=== PATIENT | female | born 1990 | race Caucasian/White ===

== ENCOUNTER → 2024-10-01 | Outpatient (CLI) | payer BC, OTHER, SELFPAY ==
[2024-10-04 16:08] LABS: HPV APTIMA, High Risk Negative (Negative)
== END | disposition home or self-care (01) ==
PROVIDERS: Referring Provider Nurse Practitioner Family; Visit Provider Nurse Practitioner Family
DX: Z12.4 Encounter for screening for malignant neoplasm of cervix (principal)
CPT/HCPCS: 87624; 88175; G0145

== ENCOUNTER 2025-06-09 11:14 | Emergency (ER) | payer BC, OTHER, SELFPAY ==
--- OUTSIDE RECORDS SUMMARY | 2025-02-08 15:44 | XMS RPT_ITS ---
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) [facility] 02/08/2025 Active 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.9(ICD-10) [facility] 02/07/2025 Active Obesity, unspeci fied class, unspecified obesity type, unspecified whether serious comorbidity present / E66.9(ICD-10) [facility] 10/08/2024 Active Nausea vomiting and diarrhea / R11.2(ICD-10) [facility] 10/08/2024 Active Nausea vomiting and diarrhea / R19.7(ICD-10) [facility] 06/18/2020 Active Crohn's disease of small and large intestines with complication (HCC) / K50.819(ICD-10) [facility] 07/13/2024 Active Immunosuppressed status (HCC) / D84.9(ICD-10) [facility] PROCEDURES No Procedure Records Found RESULTS CALPROTECTIN STL-MCNT Collected: 02/08/2025 2:40 PM Status: F Source: [facility] Order Comment: Specimen Type : STOOL SPECIMEN Ordering Facility: [facility] Address: [address] [place] [address] TYPE CODE TESTS RESULT OUT OF RANGE REFERENCE UNITS LAB [id number] CALPROTECTIN, FECAL QUANTITATIVE 17.7 <50 ug/g LAB [id number] CALPROTECTIN, FECAL INTERP Normal Normal Result Comment: Interpretati on: <50.0 ug/g: Normal 50.0 ug/g - 120.0 ug/g: Borderline elevated. Re-evaluation in 4-6 weeks is recommended if clinically indicated. >120.0 ug/g: Elevated Performed By: #### 80052-2 # ### [facility] CLIA [id number] [address] [place] CBC PNL BLD AUTO Collected: 5 4:06 PM Status: F Source: [facility] Order Comment: Specimen Type : BLOOD SPECIMEN Ordering Facility: [facility] Address: [address] [place] [address] TYPE CODE TESTS RESULT OUT OF RANGE REFERENCE UNITS LAB 6690-2(LOINC) WBC # Bld Auto 11.11 High 3.70-11.00 k/uL LAB 789-8(LOINC) RBC # Bld Auto 4.64 3.90-5.20 m/uL LAB 718-7(LOINC) Hgb Bld-mCnc 13.1 11.5-15.5 g/dL LAB 4544-3(LOINC) Hct VFr Bld Auto 40.4 36.0-46.0 % LAB 787-2(LOINC) MCV RBC Auto 87.1 80.0-100.0 fL LAB 785-6(LOINC) MCH RBC Qn Auto 28.2 26.0-34.0 pg LAB 786-4(LOINC) MCHC RBC Auto-mCnc 32.4 30.5-36.0 g/dL LAB 68425-3(LOINC) RDW RBC-Rto 13.0 11.5-15.0 % LAB 777-3(LOINC) Platelet # Bld Auto 290 150-400 k/uL LAB 83241-9(LOINC) PMV Bld Auto 11.4 9.0-12.7 fL Performed By: #### 79131-6 # ### [facility] CLIA [id number] [address] [facility] [address] [place] [address] [place] COMP METAB 2000 PNL SERPL Collected: 4:06 PM Status: F Source: [facility] Order Comment: Specimen Type : BLOOD SPECIMEN Ordering Facility: [facility] Address: [address] [place] [address] TYPE CODE TESTS RESULT OUT OF RANGE REFERENCE UNITS LAB 2885-2(LOINC) Prot SerPl-mCnc 7.2 6.0-8.5 g/dL LAB 1751-7(LOINC) Albumin SerPl-mCnc 3.9 3.2-5.0 g/dL LAB 72635-2(LOINC) Calcium SerPl-mCnc 9.1 8.5-10.5 mg/dL LAB 1975-2(LOINC) Bilirub SerPl-mCnc 0.4 0.2-1.0 mg/dL LAB 6768-6(LOINC) ALP SerPl-cCnc 112 45-117 U/L LAB 1920-8(LOINC) AST SerPl-cCnc Result Comment: Unable to as say due to interference from hemolysis. Suggest reorder as clinically indicated. Results may be falsely depressed after the administration of Sulfasalazine and/or Sulfapyridine. LAB 1742-6(LOINC) ALT SerPl-cCnc 35 13-61 U/L Result Comment: Results may be falsely depressed after the administration of Sulfasalazine and/or Sulfapyridine. LAB 2345-7(LOINC) Glucose SerPl-mCnc 74 70-100 mg/dL Result Comment: The [place] [employer] (ADA) provides guidance for cutoff values for fasting glucose and random glucose. The ADA defines fasting as no caloric intake for at least 8 hours. Fasting plasma glucose results between 100 to 125 mg/dL indicate increased risk for diabetes (prediabetes). Fasting plasma glucose results greater than or equal to 126 mg/dL meet the criteria for diagnosis of diabetes. In the absence of unequivocal hyperglycemia, results should be confirmed by repeat testing. In a patient with classic symptoms of hyperglycemia or hyperglycemic crisis, random plasma glucose results greater than or equal to 200 mg/dL meet the criteria for diagnosis of diabetes. Reference: Standards of Medical Care in Diabetes 2016, [place] [employer]. Diabetes Care. 2016.39(Suppl 1). Results may be falsely elevated after the administration of Sulfapyridine. Results may be falsely depressed after the administration of Sulfasalazine. LAB 3094-0(LOINC) BUN SerPl-mCnc 8 7-26 mg/ dL LAB 2160-0(LOINC) Creat SerPl-mCnc 0.48 Low 0.51-0.95 mg/dL Result Comment: Patients rec eiving either N-Acetylcysteine (NAC) or Metamizole prior to venipuncture, may have falsely depressed results. LAB 2951-2(LOINC) Sodium SerPl-sCnc 140 136-145 mmol/L LAB 2823-3(LOINC) Potassium SerPl-sCnc Result Comment: Unable to as say due to interference from hemolysis. Suggest reorder as clinically indicated. LAB 2075-0(LOINC) Chloride SerPl-sCnc 102 98-107 mmol/L LAB 2027-9(LOINC) CO2 SerPl-sCnc 25 21-32 mmo l/L LAB 46305-0(LOINC) Anion Gap SerPl-sCnc 13 5-16 mmol/L LAB 76807-3(LOINC) Creatinine + eGFR Pnl SerPlBld 129 >=60 mL/min/1 .73m??? Result Comment: Estimated Gl omerular Filtration Rate (eGFR) is calculated using the 2020 CKD-EPI creatinine equation. This equation utilizes serum creatinine, sex, and age as parameters. The creatinine assay has traceable calibration to isotope dilution-mass spectrometry. Refer to KDIGO guidelines for clinical interpretation. In patients with unstable renal function, e.g. those with acute kidney injury, the eGFR may not accurately reflect actual GFR. Performed By: #### 28319-8, 1988-01 #### [facility] CLIA [id number] [address] [place] [address] [place] CRP SERPL-MCNC Collected: 5 4:06 PM Status: F Source: [facility] Order Comment: Specimen Type : BLOOD SPECIMEN Ordering Facility: [facility] Address: [address] [place] [address] TYPE CODE TESTS RESULT OUT OF RANGE REFERENCE UNITS LAB 1988-01(LOINC) CRP SerPl-mCnc <0.5 <1.0 mg/dL Performed By: #### 54637-2, 1988-01 #### [facility] CLIA [id number] [address] [place] [id number] [facility] ESR BLD QN WESTRGRN Collected: 02/08/20 4:06 PM Status: F Source: [facility] Order Comment: Specimen Type : BLOOD SPECIMEN Ordering Facility: [facility] Address: [address] [place] [address] TYPE CODE TESTS RESULT OUT OF RANGE REFERENCE UNITS LAB 4537-7(LOINC) ESR Bld Qn Westrgrn 6 0-20 mm/hr Performed By: #### 4537-7 ## ## [facility] CLIA [id number] [address] ED NOTE Observed: 10/08/2024 9:42 AM Status: COMPLETED Source: [facility] HNO ID: [id number] Author: MORGAN GRANT RN Service: Emergency Medicine Author Type: Registered Nurse Type: ED Notes Filed: 10/08/2024 09:42 Note Text: PO trial successful ED NOTE Observed: 10/08/2024 9:07 AM Status: COMPLETED Source: [facility] HNO ID: [id number] Author: MORGAN GRANT RN Service: Emergency Medicine Author Type: Registered Nurse Type: ED Notes Filed: 10/08/2024 09:07 Note Text: PO challenge started. Check back in [address] ABD/PEL W IVCON Observed: 10/08/2024 8:06 AM Status: F Source: [facility] * * *Final Report* * * DATE OF EXAM: Oct 08 2024 8:06AM [facility] 0530 - CT ABD/PEL W IVCON / PROCEDURE REASON: Nausea/vomiting * * * * Physician Interpretation * * * * EXAMINATION: CT ABDOMEN AND PELVIS WITH IV CONTRAST CLINICAL HISTORY: Nausea, vomiting, history of Crohn's, previous bowel resections. TECHNIQUE: CT of the abdomen and pelvis was performed using standard technique, scanning from just above the dome of the diaphragm to the symphysis pubis. MQ: CTAP_3 Contrast: IV: 100 ml of Omnipaque 350 CT Radiation dose: Integrated Dose-length product (DLP) for this visit = 635.36 mGy*cm. CT Dose Reduction Employed: Automated exposure control(AEC) and iterative recon COMPARISON: CT abdomen/pelvis 12/18/2019, MRI enterography 03/29/2020 RESULT: Liver: Hepatic steatosis. No mass. Biliary: No bile duct dilation. Gallbladder is unremarkable. Spleen: No mass. No splenomegaly. Pancreas: No mass or duct dilation. Adrenals: No mass. Kidneys: Punctate 2 mm nonobstructing right renal calculus. No hydronephrosis or mass. GI tract: Postoperative findings of ileocolic resection. No dilation or wall thickening. The appendix is not identified. Lymph nodes: Few mildly prominent mesenteric lymph nodes midabdomen, decreased in size compared to 12/18/2019. No abdominal or pelvic lymphadenopathy by size criteria. Mesentery/Peritoneum: No ascites or mass. Retroperitoneum: No mass. Vasculature: - Abdominal aorta and iliac arteries: No aneurysm. - Celiac and SMA: Patent without stenosis. - Portal venous system (SMV, splenic vein, portal vein and branches): Patent. - Hepatic veins: Patent. Pelvis: No mass, ascites or fluid collection. Uterus is unremarkable. Bones/Soft Tissues: No significant finding. Lower thorax: Unremarkable. Localizer images: No additional findings. IMPRESSION: Punctate nonobstructing right renal calculus. No hydronephrosis. No CT evidence of bowel obstruction or bowel wall thickening/inflammation. Hepatic steatosis. Screen Maker: LEVI Transcribe Date/Time: Oct 08 2024 8:16A Dictated by : RITU MENA DO This examination was interpreted and the report reviewed and electronically signed by: RITU MENA DO on Oct 08 2024 8:35AM EST [id number] ED NOTE Observed: 10/08/2024 7:49 AM Status: COMPLETED Source: [facility] HNO ID: [id number] Author: MORGAN GRANT RN Service: Emergency Medicine Author Type: Registered Nurse Type: ED Notes Filed: 10/08/2024 07:49 Note Text: Discussed pain management with patient, decided to continue to hold off on morphine fir now and will use non-pharm to relieve pain. ED PROV NOTE Observed: 10/08/2024 6:13 AM Status: COMPLETED Source: [facility] HNO ID: [id number] Author: TAMANNA GOTTLIEB PA-C Service: ? Author Type: Physician Biblical Languages Professor Type: ED Provider Notes Filed: 10/08/2024 12:51 Note Text: ED Provider Note Patient Name: Mateo Bird : 1990 SERVICE DATE: 10/08/24 History Patient presents with: Abdominal Pain: Pt c/o mid epigastric abd pain starting @11pm. Reports n/v/d. Hx of Crohn's, last flare up "a few years ago". Patient is a 34 year old female presenting to the ER with sudden onset nausea, vomiting, and diarrhea. She reports symptoms started last night around 11 pm and have been persistent ever since. She has been complaining of epigastric abdominal pain as well. No urinary complaints. No chest pain, shortness of breath, cough, congestion, fever, chills, or recent sick contacts to her knowledge. She reports history of Crohn's disease, well controlled on Stelara. PAST MEDICAL HISTORY Diagnosis Date Abnormal Pap smear of cervix Asthma Crohn's disease (HCC) Mental disorder Depression PAST SURGICAL HISTORY Procedure Laterality Date BOWEL RESECTION HX N/A 06/14/2020 PAST SURGICAL HISTORY OF Appendectomy with a portion of small intestine removed PAST SURGICAL HISTORY OF [place] teeth TONSILLECTOMY HX FAMILY HISTORY Problem Relation Age of Onset Breast Cancer Mother Cancer Mother Ovarian and Blood cancer Crohn's Disease Brother other (Other) Brother Crohn's Cancer Paternal Grandmother Lung Colon Cancer Maternal Uncle Breast Cancer Maternal Aunt Social History Tobacco Use Smoking status: Never Smokeless tobacco: Never Vaping Use Vaping status: Never Used Substance and Sexual Activity Alcohol use: Not Currently Drug use: Never Sexual activity: Yes Partners: Male ALLERGIES No Known Allergies Review of Systems Constitutional: Negative for chills and fever. HENT: Negative for congestion and sore throat. Respiratory: Negative for cough and shortness of breath. Cardiovascular: Negative for chest pain and leg swelling. Gastrointestinal: Positive for abdominal pain, diarrhea, nausea and vomiting. Negative for anal bleeding and blood in stool. Genitourinary: Negative for difficulty urinating. Musculoskeletal: Negative for arthralgias and myalgias. Neurological: Negative for dizziness and syncope. Physical Exam Vitals [10/08/24 0446] BP Pulse Temp Temp src Resp SpO2 Weight Height 135/75 (!) 111 37.2 ?C (98.9 ?F) -- 20 96 % 77.1 kg (170 lb) 1.473 m (4' 10") Physical Exam Constitutional: Appearance: Normal appearance. HENT: Head: Normocephalic and atraumatic. Mouth/Throat: Mouth: Mucous membranes are moist. Eyes: Extraocular Movements: Extraocular movements intact. Cardiovascular: Rate and Rhythm: Normal rate and regular rhythm. Pulmonary: Effort: Pulmonary effort is normal. Breath sounds: Normal breath sounds. Abdominal: General: Bowel sounds are normal. Palpations: Abdomen is soft. Tenderness: There is generalized abdominal tenderness. Musculoskeletal: General: Normal range of motion. Skin: General: Skin is warm. Capillary Refill: Capillary refill takes less than 2 seconds. Neurological: Mental Status: She is alert and oriented to person, place, and time. Psychiatric: Mood and Affect: Mood normal. Behavior: Behavior normal. Diagnostic Testing ED Labs Ordered and Reviewed - No data to display Procedures ED Course / Clinical Impression ED Course as of 10/08/24 1248 Tamanna Gottlieb's Documentation TueOct 08, 2024 0625 CBC + AUTO DIFF(!): WBC 15.07(!) RBC 5.13 Hemoglobin 14.5 Hematocrit 45.2 MCV 88.1 MCH 28.3 MCHC 32.1 RDW-CV 12.5 Platelet Count 341 MPV 10.5 Neut% 92.0 Abs Neut (ANC) 13.87(!) Lymph% 3.5 Abs Lymph 0.53(!) Liberty% 3.6 Abs Liberty 0.54 Eosin% 0.1 Abs Eosin <0.03 Baso% 0.3 Abs Baso 0.04 Immature Gran % 0.5 IMMATURE GRANS (ABS) 0.07 NRBC 0.0 Absolute nRBC <0.01 DTYPE Auto WBC 15.07 Hgb 14.5 0625 Urinalysis w Microscopic, reflex Culture(!): Color Yellow Clarity Clear Glucose, Urine Negative Bilirubin, Urine Negative Ketones, Urine Negative Specific [place], Ur >1.030(!) Hemoglobin/Blood,Ur Negative pH, Urine 5.0 Protein, Urine Negative Urobilinogen Negative Nitrites Negative Leukest Negative WBC, Urine 0-5 /HPF RBC, Urine 0-3 /HPF Bacteria None Seen Epithelial Cells Few No bacteria/UTI 0640 HCG Qualitative: HCG, Qualitative Negative negative 0642 LIPASE BLOOD: Lipase 32 32 0642 COMPREHENSIVE METABOLIC PANEL (BMP+LFT)(!): Protein, Total 8.0 Albumin 4.0 Calcium 10.0 Bilirubin, Total 0.5 Alkaline Phosphatase 121(!) AST 26 ALT 47 Glucose 124(!) BUN 15 Creatinine 0.59 Sodium 144 Potassium 4.2 Chloride 109(!) CO2 25 Anion Gap 10 eGFR 123 Glucose [address] ABD/PEL W IVCON IMPRESSION: Punctate nonobstructing right renal calculus. No hydronephrosis. No CT evidence of bowel obstruction or bowel wall thickening/inflammation. Hepatic steatosis. Clinical Impressions as of 10/08/24 1248 Nausea vomiting and diarrhea MDM / Disposition / Plan Patient is a 34-year-old female presenting the emergency room complaint of nausea vomiting and diarrhea that started late last night. Difficulty tolerating oral intake. No significant abdominal pain. History of Crohn's controlled on Stelara. On my evaluation patient appears to be alert, oriented, she is not appear to be in acute distress. Vital signs are stable. Her abdomen is soft, nontender, nondistended, without peritoneal signs. No CVA tenderness. CBC with leukocytosis to 13. Hemoglobin is stable at 14. hCG negative. CMP unremarkable. No transaminitis. Stable renal function. Lipase normal at 32. Urinalysis without bacteria or sign of infection. A CT of the abdomen pelvis demonstrates punctate nonobstructing right renal calculus. No further evidence of obstruction, inflammation, acute intra-abdominal process. Patient is provided with fluid hydration, Zofran for pain control, and on reevaluation she reports he is resting more comfortably. She is tolerating oral intake without difficulty. Clinically, she appears well, close patient with further acute infectious process. Low suspicion for for surgical abdomen. She has symptoms most consistent with viral GI illness. Will advise continued outpatient follow-up, return precautions and discharged in stable condition. Differential Diagnoses - gastroenteritis is more likely for the following reason(s): suggested by HANDP - small bowel obstruction is less likely for the following reason(s): no evidence on imaging - Crohn's colitis is less likely for the following reason(s): no evidence on imaging - pancreatitis is less likely for the following reason(s): laboratory studies not suggestive and no evidence on imaging - cholecystitis is less likely for the following reason(s): no evidence on imaging and laboratory studies not suggestive Management Radiology Reports CT ABD/PEL W IVCON Final Result IMPRESSION: Punctate nonobstructing right renal calculus. No hydronephrosis. No CT evidence of bowel obstruction or bowel wall thickening/inflammation. Hepatic steatosis. Screen Maker: LEVI Transcribe Date/Time: Oct 08 2024 8:16A Dictated by : RITU MENA DO This examination was interpreted and the report reviewed and electronically signed by: RITU MENA DO on Oct 08 2024 8:35AM EST Meds Given During Visit ED Medication Administration from 10/08/2024 0438 to 10/08/2024 0955 Date/Time Order Dose Route Action 10/08/2024 0630 EST NaCl 0.9% 1,000 mL iv bolus 1,000 mL INTRAVENOUS New Bag/Syringe/Bottle 10/08/2024 0730 EST NaCl 0.9% 1,000 mL iv bolus 0 mL INTRAVENOUS Infusion Complete 10/08/2024 0630 EST morphine 4 mg injection 4 mg INTRAVENOUS Not Given 10/08/2024 0630 EST ondansetron (PF) 4 mg injection (ZOFRAN) 4 mg INTRAVENOUS Given Contributing Factors Chronic conditions affecting care: Crohn's colitis history Chronic conditions addressed by: CT obtained- no abscess, obstruction, fistula, inflammation Re-evaluation clinically improved and feeling better, patient tolerating PO and vital signs in acceptable range Tamanna Gottlieb PA-C Disposition The patient was discharged. Admission considered: See MDM narrative Counseled patient regarding lab results, radiology results and suspected diagnosis. The following prescription medication(s) were considered but ultimately not given after discussion with patient/family: antibiotic Reasons for not prescribing include the following: HANDP/workup not suggestive of bacterial process and OTC medications appropriate for pain. Prescriptions and Discharge Orders Discharge Orders ondansetron orally disintegrating (ZOFRAN ODT) 4 mg disintegrating tablet EVERY 6 HOURS NEEDED Route: ORAL Dose: 4 mg SIGNATURE: Tamanna Gottlieb PA-C - TAMANNA GOTTLIEB 10/08/24 1251 URINALYSIS COMPLETE PNL UR Collected: 10/08/2024 6:11 AM Status: F Source: [facility] Order Comment: Specimen Type : URINE SPECIMEN Ordering Facility: [facility] Address: [address] [place] [address] TYPE CODE TESTS RESULT OUT OF RANGE REFERENCE UNITS LAB 5778-6(LOINC) Color Ur Yellow Yellow LAB 84479-5(LOINC) Clarity Spec Clear Clear LAB 5792-7(LOINC) Glucose Ur Strip-mCnc Negative Negative LAB 5770-3(LOINC) Bilirub Ur Ql Strip Negative Negative LAB 2514-8(LOINC) Ketones Ur Strip Negative Negative LAB 5811-5(LOINC) Sp Gr Ur Strip >1.030 High 1.005-1.030 LAB 5794-3(LOINC) Hgb Ur Ql Strip Negative Negative LAB 5803-2(LOINC) pH Ur Strip 5.0 5.0-8.0 LAB 5804-0(LOINC) Prot Ur Strip-mCnc Negative Negative LAB 5818-0(LOINC) Urobilinogen Ur Strip Negative Negative LAB 5802-4(LOINC) Nitrite Ur Ql Strip Negative Negative LAB 5799-2(LOINC) Leukocyte esterase Ur Ql Strip Negative Negative LAB 5821-4(LOINC) WBC #/area UrnS HPF 0-5 /HPF 0-5 /HPF LAB 13912-2(LOINC) RBC #/area UrnS HPF 0-3 /HPF 0-3 /HPF LAB 5769-5(LOINC) Bacteria #/area UrnS HPF None Seen None Seen /HPF LAB 5787-7(LOINC) Epi Cells #/area UrnS HPF Few /HPF Performed By: #### 87429-9 # ### [facility] CLIA [id number] [address] [place] [address] [place] CBC W AUTO DIFF BLD Collected: 10/08/2024 6:[address] atus: F Source: [facility] Order Comment: Specimen Type : BLOOD SPECIMEN Ordering Facility: [facility] Address: [address] [place] [address] TYPE CODE TESTS RESULT OUT OF RANGE REFERENCE UNITS LAB 6690-2(LOINC) WBC # Bld Auto 15.07 High 3.70-11.00 k/uL LAB 789-8(LOINC) RBC # Bld Auto 5.13 3.90-5.20 m/ uL LAB 718-7(LOINC) Hgb Bld-mCnc 14.5 11.5-15.5 g/dL LAB 4544-3([facility]) Hct VFr Bld Auto 45.2 36.0-46.0 % LAB 787-2([facility]) MCV RBC Auto 88.1 80.0-100.0 fL LAB 785-6([facility]) MCH RBC Qn Auto 28.3 26.0-34.0 p g LAB 786-4([facility]) MCHC RBC Auto-mCnc 32.1 30.5-36.0 g/dL LAB 49188-4([facility]) RDW RBC-Rto 12.5 11.5-15.0 % LAB 777-3([facility]) Platelet # Bld Auto 341 150-400 k/uL LAB 16977-5([facility]) PMV Bld Auto 10.5 9.0-12.7 fL LAB 770-8([facility]) Neutrophils/leuk NFr Bld Auto 92.0 % LAB 751-8([facility]) Neutrophils # Bld Auto 13.87 High 1.45-7.50 k/uL LAB 736-9([facility]) Lymphocytes/leuk NFr Bld Auto 3.5 % LAB 731-0([facility]) Lymphocytes # Bld Auto 0.53 Low 1.00-4.00 k/uL LAB 5905-5([facility]) Monocytes/leuk NFr Bld Auto 3.6 % LAB 742-7([facility]) Monocytes # Bld Auto 0.54 <0.87 k/uL LAB 713-8([facility]) Eosinophil/leuk NFr Bld Auto 0.1 % LAB 711-2([facility]) Eosinophil # Bld Auto <0.03 <0.46 k/uL LAB 706-2([facility]) Basophils/leuk NFr Bld Auto 0.3 % LAB 704-7([facility]) Basophils # Bld Auto 0.04 <0.11 k/uL LAB 11505-1([facility]) Imm Granulocytes/brianda k NFr Bld Auto 0.5 % LAB 61635-4([facility]) Imm Granulocytes # Bld Auto 0.07 <0.10 k/uL LAB 71176-0([facility]) nRBC/100 WBC Bld-Rto 0.0 /100 WBC LAB 771-6([facility]) nRBC # Bld Auto <0.01 <0.01 k/u L LAB 28338-2(LOINC) Differential method Bld Auto Performed By: #### 64404-5 # ### [facility] CLIA [id number] [address] [place] [address] HCG QUALITATIVE Collected: 10/08/2024 6:10 AM Status : F Source: [facility] Order Comment: Specimen Type : BLOOD SPECIMEN Ordering Facility: [facility] Address: [address] [place] [address] TYPE CODE TESTS RESULT OUT OF RANGE REFERENCE UNITS LAB HCG HCG, QUALITATIVE Negative Negative Performed By: #### HCG #### [facility] CLIA [id number] [address] [place] [address] COMP METAB 2000 PNL SERPL Collected: 6:10 AM Status: F Source: [facility] Order Comment: Specimen Type : BLOOD SPECIMEN Ordering Facility: [facility] Address: [address] [place] [address] TYPE CODE TESTS RESULT OUT OF RANGE REFERENCE UNITS LAB 2885-2(LOINC) Prot SerPl-mCnc 8.0 6.0-8.5 g/dL LAB 1751-7(LOINC) Albumin SerPl-mCnc 4.0 3.2-5.0 g/dL LAB 22377-9(LOINC) Calcium SerPl-mCnc 10.0 8.5-10.5 mg/dL LAB 1975-2(LOINC) Bilirub SerPl-mCnc 0.5 0.2-1.0 mg/dL LAB 6768-6(LOINC) ALP SerPl-cCnc 121 High 45-117 U/L LAB 1920-8(LOINC) AST SerPl-cCnc 26 8-34 U/L Result Comment: Results may be falsely depressed after the administration of Sulfasalazine and/or Sulfapyridine. LAB 1742-6(LOINC) ALT SerPl-cCnc 47 13-61 U/L Result Comment: Results may be falsely depressed after the administration of Sulfasalazine and/or Sulfapyridine. LAB 2345-7(LOINC) Glucose SerPl-mCnc 124 High 70-100 mg/dL Result Comment: The [place] [employer] (ADA) provides guidance for cutoff values for fasting glucose and random glucose. The ADA defines fasting as no caloric intake for at least 8 hours. Fasting plasma glucose results between 100 to 125 mg/dL indicate increased risk for diabetes (prediabetes). Fasting plasma glucose results greater than or equal to 126 mg/dL meet the criteria for diagnosis of diabetes. In the absence of unequivocal hyperglycemia, results should be confirmed by repeat testing. In a patient with classic symptoms of hyperglycemia or hyperglycemic crisis, random plasma glucose results greater than or equal to 200 mg/dL meet the criteria for diagnosis of diabetes. Reference: Standards of Medical Care in Diabetes 2016, [place] [employer]. Diabetes Care. 2016.39(Suppl 1). Results may be falsely elevated after the administration of Sulfapyridine. Results may be falsely depressed after the administration of Sulfasalazine. LAB 3094-0(LOINC) BUN SerPl-mCnc 15 7-26 mg/ dL LAB 2160-0(LOINC) Creat SerPl-mCnc 0.59 0.51-0.95 mg/dL Result Comment: Patients rec eiving either N-Acetylcysteine (NAC) or Metamizole prior to venipuncture, may have falsely depressed results. LAB 2951-2(LOINC) Sodium SerPl-sCnc 144 136-145 mmol/L LAB 2823-3(LOINC) Potassium SerPl-sCnc 4.2 3.5-5.1 mmol/L LAB 2075-0(LOINC) Chloride SerPl-sCnc 109 High 98-107 mmol/L LAB 2028-9(LOINC) CO2 SerPl-sCnc 25 21-32 mmo l/L LAB 43864-4(LOINC) Anion Gap SerPl-sCnc 10 5-16 mmol/L LAB 92172-2(LOINC) Creatinine + eGFR Pnl SerPlBld 123 >=60 mL/min/1. 73m??? Result Comment: Estimated Gl omerular Filtration Rate (eGFR) is calculated using the 2020 CKD-EPI creatinine equation. This equation utilizes serum creatinine, sex, and age as parameters. The creatinine assay has traceable calibration to isotope dilution-mass spectrometry. Refer to KDIGO guidelines for clinical interpretation. In patients with unstable renal function, e.g. those with acute kidney injury, the eGFR may not accurately reflect actual GFR. Performed By: #### 86577-2, 3040-3 #### [facility] CLIA [id number] [address] [place] [address] LIPASE SERPL-CCNC Collected: 10/08/2024 6:10 AM Stat us: F Source: [facility] Order Comment: Specimen Type : BLOOD SPECIMEN Ordering Facility: [facility] Address: [address] [place] [address] TYPE CODE TESTS RESULT OUT OF RANGE REFERENCE UNITS LAB 3040-3(LOINC) Lipase SerPl-cCnc 32 12-60 U/L Performed By: #### 69984-1, 3040-3 #### [facility] CLIA [id number] [address] [place] [address] HAV IGM SER QL Collected: 3:52 PM Status: F Source: [facility] Order Comment: Specimen Type : BLOOD SPECIMEN Ordering Facility: [facility] Address: [address] [place] [address] TYPE CODE TESTS RESULT OUT OF RANGE REFERENCE UNITS LAB 96861-8(LOINC) HAV IgM Ser Ql Nonreactive Nonreactive, Equivocal Result Comment: Results were obtained with the [employer] (ProCiv)llKetto IM IgM assay. Values obtained with different manufactures' assay methods may not be used interchangeably. Assay performance characteristics have not been established for immunocompromised or immunosuppressed patients, cord blood, or patients less than 2 years of age. These results may be falsely depressed in the presence of Biotin concentrations above 500 ng/mL. Performed By: #### 94149-0, 72541-4, 35511-1, 47518-7, 5195-3 #### [facility] CLIA [id number] [address] [place] [address] HBV CORE IGM SER QL Collected: 07/13/20 24 3:52 PM Status: F Source: [facility] Order Comment: Specimen Type : BLOOD SPECIMEN Ordering Facility: [facility] Address: [address] [place] [address] TYPE CODE TESTS RESULT OUT OF RANGE REFERENCE UNITS LAB 14802-8(LOINC) HBV core IgM Ser Ql Nonreactive Nonreactive, Equivocal Result Comment: Results were obtained with the [employer] IM IgM assay. Values obtained with different manufactures' assay methods may not be used interchangeably. Performed By: #### 95181-7, 64588-0, 37914-7, 08519-2, 5195-3 #### [facility] CLIA [id number] [address] [place] [address] HBV SURFACE AB SER QL Collected: 2023 3:52 PM Status: F Source: [facility] Order Comment: Specimen Type : BLOOD SPECIMEN Ordering Facility: [facility] Address: [address] [place] [address] TYPE CODE TESTS RESULT OUT OF RANGE REFERENCE UNITS LAB 34515-6(LOINC) HBV surface Ab Ser Ql Negative Result Comment: No serologic al evidence of immunity to Hepatitis B Virus. LAB 23784-4(LOINC) HBV surface Ab Ser-aCnc 7.10 mIU/mL Result Comment: STATUS OF IM MUNITY Protective Immunity: greater than or equal to 10 mIU/mL (Traceable to WHO International Reference Preparation) No Protective Immunity: less than 10 mIU/mL Note: The magnitude of the measured result above the cutoff is not indicative of the total amount of antibody present. Performed By: #### 39591-3, 96082-7, 02033-4, 54050-6, 5195-3 #### [facility] CLIA [id number] [address] [place] [address] HCV AB SER QL Collected: 3:52 PM Status: F Source: [facility] Order Comment: Specimen Type : BLOOD SPECIMEN Ordering Facility: [facility] Address: [address] [place] [address] TYPE CODE TESTS RESULT OUT OF RANGE REFERENCE UNITS LAB 99326-8(LOINC) HCV Ab Ser Ql Nonreactive Nonreactive Result Comment: Screening te st negative Nonreactive HCV Antibody Screen is consistent with no HCV infection, unless recent infection is suspected or other evidence exists to indicate HCV infection. Results were obtained with the [employer] IM IgG assay. Values obtained with different manufactures' assay methods may not be used interchangeably. Performed By: #### 00100-8, 31790-3, 36786-7, 57872-7, 5195-3 #### [facility] CLIA [id number] [address] [place] [address] [place] HBV SURFACE AG SER QL Collected: 2023 3:52 PM Status: F Source: [facility] Order Comment: Specimen Type : BLOOD SPECIMEN Ordering Facility: [facility] Address: [address] [place] [address] TYPE CODE TESTS RESULT OUT OF RANGE REFERENCE UNITS LAB 5195-3(LOINC) HBV surface Ag Ser Ql Nonreactive Equivocal, Nonreactive Result Comment: Results were obtained with the [employer] ([employer]ll[employer] IM IgM assay. Values obtained with different manufactures' assay methods may not be used interchangeably. Performed By: #### 85873-2, 82851-7, 29532-3, 00985-7, 5195-3 #### [facility] CLIA [id number] [address] [place] [address] [place] HEPATITIS A ANTIBODY, IGG Collected: 3:52 PM Status: F Source: [facility] Order Comment: Specimen Type : BLOOD SPECIMEN Ordering Facility: [facility] Address: [address] [place] [address] TYPE CODE TESTS RESULT OUT OF RANGE REFERENCE UNITS LAB 50899-1(LOINC) HAV IgG Ser Ql Negative Result Comment: No serologic al evidence of immunity to Hepatitis A Virus. Performed By: #### AHAVG ### # [facility] CLIA [id number] [address] [place] [address] [place] BLOOD TB SCREEN Collected: 3:52 PM Status: F Source: [facility] Order Comment: Specimen Type : BLOOD SPECIMEN Ordering Facility: [facility] Address: [address] [place] [address] TYPE CODE TESTS RESULT OUT OF RANGE REFERENCE UNITS LAB TBGNIL TB NIL 0.01 <=8.00 IU/mL LAB TBG1AG TB1 AG MINUS NIL 0.02 <0.35 IU/mL LAB TBG2AG TB2 AG MINUS NIL 0.00 <0.35 IU/mL LAB 91910-3(LOIN C) M TB tuberc IFN-g Bld Ql Negative LAB TBMITN MITOGEN MINUS NIL >9.99 >=0.50 IU/mL LAB TBGINT TB GAMMA INTERPRETATION Infection with M. tuberculosis complex is unlikely. If latent tuberculosis infection is highly suspected, a negative result does not rule out the infection. Specimens from immunocompromised patients and those <5 years of age may show false negative results. In case of a contact investigation, please repeat 8-12 weeks after a known exposure. Performed By: #### INFTBP ## ## [facility] CLIA [id number] [address] [place] [address] [place] ALLERGIES DATE TYPE / CODE NAME / CODE REACTION SEVERITY SOURCE Drug Class/388327811(SNOMED CT) NO KNOWN ALLERGIES [facility] ENCOUNTERS ADMIT/DISCHARGE ACCOUNT NUMBER ADMITTING ENCOUNTER CLASS LOC ATION SOURCE 02/08/2025/02/08/2025 [id number] Ambulatory 136 [id number] lding:[facility] 02/07/2025/02/07/2025 [id number] Ambulatory 136 [id number] lding:[facility] 10/08/2024/10/08/2024 [id number] Emergency 136 [id number] lding:EDHRoom : [id number]: 01 [facility] 07/13/2024/07/13/2024 [id number] Ambulatory 136 [id number] lding:[facility] PAYERS ENCOUNTER GUARANTOR PAYER SUBSCRIBER SOURCE 02/08/2025 Primary Insuranc e:[employer] ACCESS PPOPolicy Number: [id number] Date:0100-73-16Hadi Name:Alphonse MCARTHURB: [id number] [place] [address] [facility] 02/08/2025 Secondary Insurance:MMO SUPERMED PPOPolicy Number: [id number] Date:0264-59-50Zjkd Name:Stephen MCARTHURB: [id number] [place] [address] [facility] 02/07/2025 Primary Insuranc e:BLUE ACCESS PPOPolicy Number: [id number] Date:4232-20-49Mrgh Name:Alphonse Bellamy BLUEB: [id number] [address] 02/07/2025 Secondary Insurance:MMO SUPERMED PPOPolicy Number: [id number] Date:1184-89-70Cghw Name:Stephen MCARTHURB: [id number] [address] 10/08/2024 Primary Insuranc e:BLUE ACCESS PPOPolicy Number: [id number] Date:2099-10-60Qjpm Name:Alphonse Bellamy BLUEB: [id number] [address] 10/08/2024 Secondary Insurance:MMO SUPERMED PPOPolicy Number: [id number] Date:2644-75-82Edgy Name:Stephen MCARTHURB: [id number] [address] 07/13/2024 Primary Insuranc e:BLUE CARD PPO OOSPolicy Number: [id number] Date:9457-45-08Nhfe Name:Alphonse Bellamy BLUEB: [id number] [address] 07/13/2024 Secondary Insurance:MMO SUPERMED PPOPolicy Number: [id number] Date:1350-96-72Lxwi Name:Stephen MCARTHURB: [id number] [address]
[2025-06-09 11:15] VITALS: BP 121/85; PULSE 84; RESP 18; TEMP 36.4; O2SAT 100; BMI 32.8
--- NOTE | 2025-06-09 11:27 | US_ITS ---
PROCEDURE: TRANSVAGINAL W/PREG US 06/09/2025 REASON FOR EXAM: AND BLEEDING. HcG 153. LMP 04/22/2025 with an EGA of 6 weeks 6 days. TECHNIQUE: Procedure Code: USTVAGP Modality: US Procedure: TRANSVAGINAL W/PREG US COMPARISON: None. FINDINGS ENDOMETRIUM: Heterogeneous with a thickness of 14.0 mm. Endometrial cystic lesion with a mean diameter of 2.0 mm. This may represent an early gestational sac, too small to generate a gestational age. No embryo or yolk sac identified. No abnormal endometrial color Doppler flow. UTERUS: Normal size and contour measuring 8.0 x 3.9 x 4.8 cm. No fibroid detected. CERVIX: Normal size and contour. Minimal fluid in the cervical canal. RIGHT OVARY: Normal size measuring 3.4 x 1.5 x 2.6 cm, with a 1.5 cm thick-walled cystic structure, likely a corpus luteum. Normal follicles. Normal blood flow. No adnexal mass. LEFT OVARY: Normal size and appearance measuring 2.7 x 1.5 x 3.2 cm. Normal follicles. Normal blood flow. No adnexal mass. FREE FLUID: No free fluid. US/Transvaginal w/Preg US IMPRESSION: 1. Endometrial cystic structure, may represent an early gestational sac. No e mbryo or yolk sac identified at this time. Advise one-week follow-up for viability. 2. No extrauterine detected, however an unidentified ectopic pregnan cy is not excluded. 3. Minimal endocervical fluid, likely blood products. Reading Location: [id number]
--- NOTE | 2025-06-09 11:28 | ED.VIS.FEGU ---
HPI HPI - Female History of Present Illness Chief Complaint: Vag Bld, Preg Detail of Chief Complaint: and vaginal bleeding Informant: patient and spouse/S.O. Narrative Narrative: Patient presents to the emergency department with vaginal bleeding and . Patient thinks she is about 6 weeks 6 days along. Started having some dark spotting 3 days ago. Today more bright red when wiping. Some intermittent abdominal cramping. She has not had an ultrasound with this . She is G2, P1. Denies recent intercourse or trauma to the vaginal area. Patient not anticoagulated. Denies urinary symptoms. PFSH PFSH Medical History Crohn's disease Asthma Home Medications Medication Instructions Recorded Last Taken Type PNV 153-FA 400 mcg-om3 35 mg-dha 3 tab PO DAILY 06/07/25 Unknown History 25 mg-epa 5 mg-fish oil chew tablet albuterol 90 mcg/actuation aerosol mcg inhalation PRN SOB 06/07/25 Unknown History inhaler cholecalciferol (vitamin D3) 25 2,000 unit PO QDAY 06/07/25 Unknown History mcg (1,000 unit) tablet Allergy/AdvReac Type Severity Reaction Status Date / Time No Known Allergies Allergy Verified 06/09/25 11:14 Family History Father Alcoholism Mother Anxiety Breast cancer, Onset Age: 33 Myocardial infarction Brother Asthma Crohn's disease Grandmother Arthritis Maternal Cancer, Onset Age: 65 Paternal- Lung CVA (cerebral vascular accident) Maternal Grandfather Rheumatoid arthritis Maternal Cancer Maternal Great Grandfather - Brain cancer Myocardial infarction, Onset Age: 55 Maternal Surgical History History of delivery H/O hemicolectomy History of bowel resection Hx of appendectomy H/O wisdom tooth extraction Hx of tonsillectomy Social History adopted: No household members: spouse and children housing: house number of children: 1 current occupational status: employed current occupation: [employer] current occupational exposures/hazards: No pets and animals: No history of recent travel: Yes (March) out of state: Yes out of country: No sexually active: Yes Smoking Status: Never smoker alcohol intake: never substance use type: does not use well-balanced diet: daily or most days caffeine: Yes (occasional) Type: tea Number of servings: 1 eating out: rarely or never during the past year weight has: decreased > 10 lbs what type of physical activity do you participate in: walking and running frequency: daily duration: 45-60 minutes/day jairo/sikh: Adventism seatbelt use: always do you feel safe at home: Yes 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 ROS ROS ED Review of Systems ROS Unobtainable: other Constitutional Constitutional ED: Reports lethargy; Denies chills, fever(s), sweats or weight loss Eyes Eyes: Denies blurry vision, change in vision or diplopia ENT ENT ED: Denies rhinorrhea or sore throat Cardiovascular Cardiovascular: Reports chest pain and racing heartbeat; Denies orthopnea Respiratory/Chest Respiratory/Chest: Denies cough, dyspnea, dyspnea on exertion, orthopnea or sputum Gastrointestinal Gastrointestinal: Reports abdominal pain; Denies diarrhea, nausea or vomiting Genitourinary Genitourinary ED: Reports other Details: Vaginal bleeding ; Denies dysuria, hematuria or urinary frequency Musculoskeletal Musculoskeletal: Denies arthralgias, back pain, myalgias or neck pain Integumentary Denies abscess, Abrasions or rash Neurologic Neurologic: Denies headache(s) or weakness Psychiatric Psychiatric: Denies anxiety, depression or suicidal thoughts Endocrine Endocrinology: Denies polydipsia, polyphagia or polyuria Hematologic/Lymphatic Hematologic/Lymphatic: Denies easy bleeding, easy bruising or lymphadenopathy Allergic/Immunologic Allergic/Immunologic ED: Denies mouth swelling, tongue swelling or urticaria EXAM Physical Exam Const Vital Signs: 06/09/25 11:15 06/09/25 13:14 06/09/25 14:22 Temperature 97.6 F L 97.6 F L Temperature Source Temporal Pulse Rate 84 76 76 Respiratory Rate 18 16 16 Blood Pressure 121/85 H 112/82 H 112/82 H Blood Pressure Mean 97 92 92 Pulse Ox 100 100 100 Oxygen Delivery Method Room Air Positive well nourished and well developed General Appearance ED: well developed and NAD HEENT Reports TM's clear and moist mucous membranes normocephalic and atraumatic; Negative for trauma or tenderness Tympanic Membrane ED: Yes TM's clear Eyes PERRL and EOMs intact bilaterally General Eye ED: Negative for pale conjunctiva or scleral icterus Neck no lymphadenopathy, supple and no JVD General: Negative for tenderness Chest Wall inspection of chest normal and palpation of chest normal Chest: Negative for tenderness Resp normal respiratory effort and clear to auscultation bilaterally Effort and Inspection: Negative for respiratory distress or pain with movement Auscultation: Negative for rhonchi, wheezes or diminished lung sounds Cardio regular rate, regular rhythm, S1 normal heart sound, S2 normal heart sound and no murmurs Peripheral Pulses: pulses 2+ throughout GI normal to inspection, nondistended, normoactive bowel sounds, soft to palpation, non-tender, non-distended and no masses Back/Spine no CVA tenderness and no thoracic nor lumbar tenderness Extremity normal to inspection General Extremety ED: Negative for edema General Extremity: Negative for edema Neuro oriented x3, CN's II-XII intact bilaterally, no sensory deficits noted and gait normal Sensorium / Orientation: awake, alert, oriented to person, oriented to place and oriented to time Motor Exam: strength 5/5 throughout and strength abnormal Psych mental status grossly normal Skin no rashes or lesions noted and no wounds MDM MDM MDM Narrative Medical decision making narrative: Patient presents with vaginal bleeding. Last menstrual period May 02 and thinks she may be 6 weeks 6 days. Scheduled to follow-up with [facility]. Has not had an ultrasound. Started have more bleeding today. Clinically she looks well. IV line established. CBC with differential obtained showed white count 9.5 with hemoglobin 12.5 and platelet count of 282. Quantitative hCG was 153. Blood type a positive. Urine had greater than 100 RBCs and 10-25 WBCs with +1 bacteria and I did send a culture. She is not having urinary symptoms. Ultrasound obtained showed endometrial cystic structure which may represent early gestational sac no embryo or yolk sac identified at this time advise 1 week follow-up for viability. There was no extrauterine detected. There was minimal endocervical fluid likely blood products. Discussed results with patient and her . At this time unclear if this is a very early or possible spontaneous miscarriage. Attempted to contact COLLECTION AGENT on-call unsuccessfully and patient does not want to wait and would like to be discharged to home. She will make a follow-up appointment with their office tomorrow she will need repeat quantitative hCG levels as well as follow-up ultrasound. Patient advised to return if persistent heavy bleeding, severe abdominal pain, or condition should worsen anyway. Lab Data Attestation: I reviewed the patient's lab results. Labs: Laboratory Results - last 24 hr 06/09/25 06/09/25 11:47 11:55 WBC 9.5 RBC 4.41 Hgb 12.5 Hct 38.7 MCV 87.8 MCH 28.3 MCHC 32.3 RDW Std Deviation 41.4 RDW Coeff of Alyce 13.0 Plt Count 282 MPV 11.2 Immature Gran % (Auto) 0.300 Neut % (Auto) 63.1 Lymph % (Auto) 27.5 Craig % (Auto) 7.0 Eos % (Auto) 1.6 Baso % (Auto) 0.5 Absolute Neuts (auto) 6.0 Absolute Lymphs (auto) 2.60 Nucleated RBC % 0 HCG, Quant 153 H Urine Color SEE COMMENT BELOW Urine Clarity Cloudy Urine pH 6.0 Ur Specific [place] 1.010 Urine Protein 100 H Urine Glucose (UA) Normal Urine Ketones Negative Urine Occult Blood 250 H Urine Nitrite Negative Urine Bilirubin Negative Urine Urobilinogen Normal Ur Leukocyte Esterase 100 H Urine RBC > 100 SEEN Urine WBC 10-25 SEEN Ur Squamous Epith Cells 0-5 SEEN Urine Bacteria 1+ Urine Mucus 0 SEEN Blood Type A POSITIVE Radiography Diagnostic Testing: Clinical Impression(s) from Imaging Studies Obstetrics Ultrasound 06/09/25 11:27 IMPRESSION: 1. Endometrial cystic structure, may represent an early gestational sac. No embryo or yolk sac identified at this time. Advise one-week follow-up for viability. 2. No extrauterine detected, however an unidentified ectopic is not excluded. 3. Minimal endocervical fluid, likely blood products. Reading Location: [facility] Discharge Plan Triage Chief Complaint: Vag Bld, Preg ED Provider: [place] Dx/Rx/DC Orders Clinical Impression: Threatened in first trimester Instructions: Vaginal Bleeding During , Miscarriage Threatened Prescriptions: No Action cholecalciferol (vitamin D3) 25 mcg (1,000 unit) tablet 2,000 unit PO QDAY albuterol 90 mcg/actuation aerosol inhalation PRN (Reason: SOB) PNV no.[id number] 400 mcg-35 mg- 25 mg-5 mg tablet,chewable 3 tab PO DAILY Primary Care Provider: Neisha Joyner Referrals: Miguelina Scott MD [Med Staff - Active Staff, Obstetrics-Gynecology (OBGYN)] - 1 Day NOT,DEFINED [Non-Staff, None] Print Language: Macedonian Disposition Disposition: Home, Self Care
[2025-06-09 11:57] LABS: Hematocrit 38.7 % (37-47); Hemoglobin 12.5 g/dL (12.0-15.0); Immature Granulocytes Count 0.030 X10^3/uL (0.0-0.0); Mean Corp Hgb Conc 32.3 g/dL (32-36); Mean Corpuscular Volume 87.8 fL (81-99); Mean Platelet Vol. 11.2 fl (6.2-12.0); NRBC Flagged by Analyzer 0 % (0-5); Platelet Count 282 K/mm3 (150-450); RBC Distribution Width CV 13.0 % (11.6-14.6); RBC Distribution Width SD 41.4 fl (35.1-43.9); Red Blood Count 4.41 M/mm3 (4.2-5.4); White Blood Count 9.5 K/mm3 (4.4-11.0)
[2025-06-09 12:03] LABS: Mucous, Urine 0 SEEN /hpf (<or=2+)
[2025-06-09 12:08] LABS: Glucose, Dipstick Normal (Normal); Ketone-Dipstick Negative (Negative); Leukocyte Esterase-Dipstick 100 /ul (Negative); Nitrite-Dipstick Negative (Negative); Occult Blood-Urine 250 /ul (Negative); Protein-Dipstick 100 mg/dl (Negative); Specific Gravity, Urine 1.010 (1.002-1.030); Urine Bilirubin Dipstick Negative (Negative)
[2025-06-09 12:10] LABS: Color, Urine SEE COMMENT BELOW (Yellow)
[2025-06-09 12:27] LABS: hCG Titer Quant., Serum 153 mIU/mL (<9 non-preg)
[2025-06-09 12:43] LABS: Red Blood Cells-Urine > 100 SEEN /hpf (0-5); Squamous Epithelial Cells - UA 0-5 SEEN /hpf (5-10)
[2025-06-09 13:14] VITALS: BP 112/82; PULSE 76; RESP 16; O2SAT 100
[2025-06-09 14:22] VITALS: BP 112/82; PULSE 76; RESP 16; TEMP 36.4; O2SAT 100
[2025-06-09 15:00] VITALS: BP 120/90; PULSE 79; RESP 16; O2SAT 100
== END 2025-06-09 15:06 | disposition home or self-care (01) ==
PROVIDERS: Emergency Provider Emergency Medicine; PCP Family Medicine; Visit Provider Emergency Medicine
DX: O20.0 Threatened abortion (principal); O99.891 Other specified diseases and conditions complicating pregnancy; R10.9 Unspecified abdominal pain; O99.511 Diseases of the respiratory system complicating pregnancy, first trimester; J45.909 Unspecified asthma, uncomplicated; Z3A.01 Less than 8 weeks gestation of pregnancy
CPT/HCPCS: 76817; 81001; 84702; 85025; 86900; 86901; 87077; 87086; 87088; 87186; 99282; A4216